=== PATIENT | male | born 1965 | race Caucasian/White ===

== ENCOUNTER 2023-06-26 01:40 | Emergency (ER) | payer OTHER, SELFPAY ==
[2023-06-26] VITALS (11 sets, daily range): BP systolic 156–193; BP diastolic 83–96; PULSE 61–130; RESP 14–36; TEMP 36.6; O2SAT 86–97; BMI 28.0
--- NOTE | 2023-06-26 01:53 | ED_ITS ---
HPI - General Adult <Maryana Spears MD - Last Filed: 06/26/23 18:39> General Chief complaint: Toxicology Problem Stated complaint: SI- intoxicated. Time Seen by Provider: 06/26/23 01:40 History of Present Illness HPI narrative: 58-year-old gentleman brought on by medics after his called 911 concerned that he was suicidal, [place] and acutely intoxicated. He states that he has no acute medical issues, he is simply needed to get away because his ?talks talks talks talks talks talks in my ear all the time. He said that he started drinking around noon today which is 14 hours ago and over that timeframe has had 1.5 1/5 bottles of hard alcohol at around 12 beers. He states that he typically drinks every other day, does not have difficulty when he stops drinking, has thought about cutting back but has never been to any type of rehab or detox program. He states that he has never tried to kill himself and isn't sure why his was worried about him this time when he ?has said at least 100 times to her that I am going to kill myself?. He has no plan. He is intoxicated, perseverating but otherwise calm with no aggressive behaviors and no overt behaviors to suggest acute suicidal ideation Related Data Allergies Allergy/AdvReac Type Severity Reaction Status Date / Time No Known Drug Allergies Allergy Verified 06/26/23 02:10 Review of Systems <Maryana Spears MD - Last Filed: 06/26/23 18:39> Review of Systems Narrative: Pertinent positive and negative findings as per HPI Patient History <Maryana Spears MD - Last Filed: 06/26/23 18:39> Medical History (Updated 06/26/23 @ 05:44 by Maryana Spears MD) Alcohol use disorder Exam <Maryana Spears MD - Last Filed: 06/26/23 18:39> Narrative Exam Narrative: General: Healthy appearing, in no acute distress. Acutely intoxicated with unstable gait, perseverating conversation but no signs of self-harm HEENT: Moist mucous membranes, normal sclera with reactive pupils, Respiratory: Lungs are clear to auscultation, no wheezing no rales no rhonchi. Full and symmetrical air movement Cardiac: Regular rate and rhythm no murmurs no bruits Abdomen: Soft, nontender, good bowel tones, no flank pain Skin: Warm and dry, no rashes Neurologic: Intoxicated but otherwise Grossly neurologically intact with no obvious asymmetries or abnormalities Extremities: No trauma, well perfused Psych: Cooperative, poor overall insight Initial Vital Signs Initial Vital Signs: Vital Signs Temperature 98 F 06/26/23 01:40 Pulse Rate 96 H 06/26/23 01:40 Respiratory Rate 16 06/26/23 01:40 Blood Pressure 190/93 H 06/26/23 01:40 Pulse Oximetry 95 06/26/23 01:40 Oxygen Delivery Method Room Air 06/26/23 01:40 <Renee Liao DO - Last Filed: 06/26/23 14:44> Initial Vital Signs Initial Vital Signs: Vital Signs Temperature 98 F 06/26/23 01:40 Pulse Rate 96 H 06/26/23 01:40 Respiratory Rate 16 06/26/23 01:40 Blood Pressure 190/93 H 06/26/23 01:40 Pulse Oximetry 95 06/26/23 01:40 Oxygen Delivery Method Room Air 06/26/23 01:40 Course <Maryana Spears MD - Last Filed: 06/26/23 18:39> Orders Ordered: Discontinued Medications Thiamine HCl 100 mg/ Sodium (Chloride) 101 mls @ 404 mls/hr IV NOW ONE Stop: 06/26/23 01:54 Last Infusion: 06/26/23 02:26 Dose: Infused Documented By: Admin: 06/26/23 02:11 Dose: 404 mls/hr Documented By: KATHRYN Sodium Chloride (Normal Saline 0.9%) 1,000 mls @ 1,000 mls/hr IV BOLUS ONE Stop: 06/26/23 02:52 Last Infusion: 06/26/23 03:12 Dose: Infused Documented By: Admin: 06/26/23 02:12 Dose: 1,000 mls/hr Documented By: KATHRYN Ketamine HCl (Ketamine 500 Mg/5 Ml Inj) 300 mg IM NOW ONE Stop: 06/26/23 03:14 Last Admin: 06/26/23 03:25 Dose: 300 mg Documented By: KATHRYN Ondansetron HCl (Ondansetron 4 Mg/2 Ml Inj) 4 mg IV NOW ONE Stop: 06/26/23 01:54 Last Admin: 06/26/23 02:11 Dose: 4 mg Documented By: KATHRYN Vital Signs Vital signs: Vital Signs - 8 hr 06/26/23 01:40 06/26/23 01:43 06/26/23 01:44 Temperature 98 F Pulse Rate 96 H 94 H Respiratory Rate 16 Blood Pressure 190/93 H 190/93 H Pulse Oximetry 95 97 Oxygen Delivery Method Room Air Oxygen Flow Rate 06/26/23 02:00 06/26/23 02:00 06/26/23 02:30 Temperature Pulse Rate 88 61 Respiratory Rate Blood Pressure 183/96 H Pulse Oximetry 97 95 Oxygen Delivery Method Oxygen Flow Rate 06/26/23 03:25 06/26/23 03:27 06/26/23 03:27 Temperature Pulse Rate 119 H 124 H Respiratory Rate 16 Blood Pressure 183/84 H Pulse Oximetry 92 93 86 L Oxygen Delivery Method Room Air Oxygen Flow Rate 06/26/23 03:30 06/26/23 03:30 06/26/23 04:00 Temperature Pulse Rate 130 H 114 H Respiratory Rate 14 19 Blood Pressure 182/85 H Pulse Oximetry 94 95 Oxygen Delivery Method Nasal Cannula Oxygen Flow Rate 2 06/26/23 04:00 06/26/23 04:30 06/26/23 04:31 Temperature Pulse Rate 106 H Respiratory Rate 36 H Blood Pressure 193/83 H 156/95 H Pulse Oximetry Oxygen Delivery Method Oxygen Flow Rate 06/26/23 04:31 Temperature Pulse Rate 108 H Respiratory Rate 32 H Blood Pressure Pulse Oximetry 96 Oxygen Delivery Method Room Air Oxygen Flow Rate <Renee Liao, - Last Filed: 06/26/23 14:44> Orders Ordered: Discontinued Medications Thiamine HCl 100 mg/ Sodium (Chloride) 101 mls @ 404 mls/hr IV NOW ONE Stop: 06/26/23 01:54 Last Infusion: 06/26/23 02:26 Dose: Infused Documented By: Admin: 06/26/23 02:11 Dose: 404 mls/hr Documented By: KATHRYN Sodium Chloride (Normal Saline 0.9%) 1,000 mls @ 1,000 mls/hr IV BOLUS ONE Stop: 06/26/23 02:52 Last Infusion: 06/26/23 03:12 Dose: Infused Documented By: Admin: 06/26/23 02:12 Dose: 1,000 mls/hr Documented By: KATHRYN Ketamine HCl (Ketamine 500 Mg/5 Ml Inj) 300 mg IM NOW ONE Stop: 06/26/23 03:14 Last Admin: 06/26/23 03:25 Dose: 300 mg Documented By: KATHRYN Ondansetron HCl (Ondansetron 4 Mg/2 Ml Inj) 4 mg IV NOW ONE Stop: 06/26/23 01:54 Last Admin: 06/26/23 02:11 Dose: 4 mg Documented By: KATHRYN Vital Signs Vital signs: Vital Signs - 8 hr 06/26/23 01:40 06/26/23 01:43 06/26/23 01:44 Temperature 98 F Pulse Rate 96 H 94 H Respiratory Rate 16 Blood Pressure 190/93 H 190/93 H Pulse Oximetry 95 97 Oxygen Delivery Method Room Air Oxygen Flow Rate 06/26/23 02:00 06/26/23 02:00 06/26/23 02:30 Temperature Pulse Rate 88 61 Respiratory Rate Blood Pressure 183/96 H Pulse Oximetry 97 95 Oxygen Delivery Method Oxygen Flow Rate 06/26/23 03:25 06/26/23 03:27 06/26/23 03:27 Temperature Pulse Rate 119 H 124 H Respiratory Rate 16 Blood Pressure 183/84 H Pulse Oximetry 92 93 86 L Oxygen Delivery Method Room Air Oxygen Flow Rate 06/26/23 03:30 06/26/23 03:30 06/26/23 04:00 Temperature Pulse Rate 130 H 114 H Respiratory Rate 14 19 Blood Pressure 182/85 H Pulse Oximetry 94 95 Oxygen Delivery Method Nasal Cannula Oxygen Flow Rate 2 06/26/23 04:00 06/26/23 04:30 06/26/23 04:31 Temperature Pulse Rate 106 H Respiratory Rate 36 H Blood Pressure 193/83 H 156/95 H Pulse Oximetry Oxygen Delivery Method Oxygen Flow Rate 06/26/23 04:31 Temperature Pulse Rate 108 H Respiratory Rate 32 H Blood Pressure Pulse Oximetry 96 Oxygen Delivery Method Room Air Oxygen Flow Rate Medical Decision Making <Maryana Spears MD - Last Filed: 06/26/23 18:39> Lab Data 06/26/23 01:55 06/26/23 01:55 Labs: Lab Results 06/26/23 06/26/23 Range/Units 01:55 02:50 WBC 7.7 (4.5-11.0) X10^3/uL RBC 4.82 (4.5-5.9) X10^6/uL Hgb 15.5 (13.5-17.5) g/dL Hct 45.1 (41-53) % MCV 93.6 (80-100) fL MCH 32.2 (26-34) PG MCHC 34.4 (30-36) % RDW 14.8 (11.6-14.8) % Plt Count 271 (150-400) X10^3/uL Neut % (Auto) 58.4 (50-75) % Lymph % (Auto) 30.1 (25-40) % [place]ud[place]eth % (Auto) 6.8 (3-14) % Eos % (Auto) 2.7 (2-4) % Baso % (Auto) 2.0 (0-2) % Neut # (Auto) 4500 (2419-8162) /uL Lymph # (Auto) 2300 (5512-6252) /uL [place] # (Auto) 500 (0-900) /uL Eos # (Auto) 200 (0-450) /uL Baso # (Auto) 200 H (0-100) /uL Sodium 148 H (137-145) mmol/L Potassium 3.4 (3.4-5.1) mmol/L Chloride 111 H (98-107) mmol/L Carbon Dioxide 27 (22-32) mmol/L BUN 5 L (9-20) mg/dL Creatinine 0.77 (0.66-1.25) mg/dL Estimated GFR > 60 (>60) mL/min BUN/Creatinine Ratio 6.5 (6-22) Glucose 114 H (80-110) mg/dL Calcium 8.8 (8.4-10.2) mg/dL Magnesium 2.2 (1.6-2.3) mg/dL Total Bilirubin 0.7 (0.2-1.3) mg/dL AST 33 (17-59) IU/L ALT 21 (<50) IU/L Alkaline Phosphatase 107 (38-126) U/L Total Protein 7.7 (6.3-8.2) g/dL Albumin 4.0 (3.5-5.0) g/dL Globulin 3.7 (1.7-4.1) g/dL Albumin/Globulin Ratio 1.1 (1.0-2.8) Lipase 94 (23-300) U/L Urine RBC None seen (0-5/HPF) Urine WBC None seen (0-5/HPF) Ur Squamous Epith Cells None seen (0-5/HPF) Urine Bacteria None seen (None) Ur Culture Indicated? Cult not indicated U Opiates 300ng/mL cut Negative (Negative) Ur Oxycodone Screen Negative (Negative) Urine Methadone Screen Negative (Negative) Ur Barbiturates Screen Negative (Negative) U Tricyclic Antidepress Negative (Negative) Ur Phencyclidine Scrn Negative (Negative) Ur Amphetamines Screen Negative (Negative) U Methamphetamines Scrn Negative (Negative) Ur MDMA Scrn (Ecstasy) Negative (Negative) U Benzodiazepines Scrn Negative (Negative) Urine Cocaine Screen Negative (Negative) U Marijuana (THC) Screen Negative (Negative) Ethyl Alcohol 344 H ( - 10) mg/dL MDM Narrative Medical decision making narrative: . CC: Acute alcohol intoxication, suicidal ideation Complicating co-morbidities: Unknown Data collected from: patient, Social determinants of health that may influence the patients condition: No access to records, ID or his to confirm Medical records reviewed: None are available Differential considered: Acute alcohol alcohol intoxication, suicidal ideation, life frustration with depression Exam documented above, pertinent findings include: 58-year-old gentleman with slightly intoxicated no signs of self-harm does not understand how he possibly ended up in the emergency department and continues to have increasing frustration levels with his Lab Test results independently reviewed as above. Pertinent findings: Metabolic panel shows a sodium of 148, her main or chemistries are unremarkable CBC is reassuring Alcohol level is 344 Urine drug screen is otherwise unremarkable Treatments: A L of fluid, 4 mg of Zofran, a 100 mg of vitamin Re-evaluations:3am patient got up and ran out of the emergency department. His gait was actually much more steady. We did attempt to redirect him and invited him to stay. He can continued to try to run out the front door. One of our nurses did follow him to make sure that he was safe. 911 was called to let them know that and intoxicated suicidal gentleman was trying to leave the hospital. Alcohol level was 344 and at the very least he needs to sober enough to safely be able to decide he can go home. It is not entirely clear that he is in fact suicidal, what is clear is that he is acutely intoxicated, frustrated and not able to be medically cleared and not able to safely return to his camp site without a responsible adult with him. Police did respond and did escort him back to room 6. Will sedate him with ketamine until he is able to sober enough to be medically cleared. He pulled his IV out so we will be using IM ketamine at 3.5/kg. He is becoming increasingly agitated, belligerent and more of a danger to both himself and to staff. 325am patient was redirected enough to allow ketamine IM in his arm. We explained to him that he needs to sleep off his alcohol enough to be able to have a sober discussion regarding his mental health. He seemed quite pleased after ketamine was given, finger probe was placed warm blankets were given and hopefully he will be able to sleep for a couple of hours. Patient became quite tearful and continually noted that ?life sucks?. 530am patient is awake and just wants to go home yet not sober enough to formulate a plan to actually get home. Discussion: 58-year-old gentleman with some obvious marital difficulties and alcohol use disorder clearly quite intoxicated last night passive suicidal ideation while he was acutely intoxicated as he is sobered he is somewhat embarrassed, frustrated and clearly not suicidal. He clearly identifies reasons that he wants to live and was not able to describe any type of plan to follow through for suicide. At this time he has no interest in stopping his alcohol use, he is functionally sober, not mentioning any passive suicidal or active suicidal verbiage and will be safe to go home once he is able to call either a cab or an uber to get him back [place] <Renee Liao, DO - Last Filed: 06/26/23 14:44> Lab Data Labs: Lab Results 06/26/23 06/26/23 Range/Units 01:55 02:50 WBC 7.7 (4.5-11.0) X10^3/uL RBC 4.82 (4.5-5.9) X10^6/uL Hgb 15.5 (13.5-17.5) g/dL Hct 45.1 (41-53) % MCV 93.6 (80-100) fL MCH 32.2 (26-34) PG MCHC 34.4 (30-36) % RDW 14.8 (11.6-14.8) % Plt Count 271 (150-400) X10^3/uL Neut % (Auto) 58.4 (50-75) % Lymph % (Auto) 30.1 (25-40) % [place] % (Auto) 6.8 (3-14) % Eos % (Auto) 2.7 (2-4) % Baso % (Auto) 2.0 (0-2) % Neut # (Auto) 4500 (4079-1569) /uL Lymph # (Auto) 2300 (7396-3632) /uL [place] # (Auto) 500 (0-900) /uL Eos # (Auto) 200 (0-450) /uL Baso # (Auto) 200 H (0-100) /uL Sodium 148 H (137-145) mmol/L Potassium 3.4 (3.4-5.1) mmol/L Chloride 111 H (98-107) mmol/L Carbon Dioxide 27 (22-32) mmol/L BUN 5 L (9-20) mg/dL Creatinine 0.77 (0.66-1.25) mg/dL Estimated GFR > 60 (>60) mL/min BUN/Creatinine Ratio 6.5 (6-22) Glucose 114 H (80-110) mg/dL Calcium 8.8 (8.4-10.2) mg/dL Magnesium 2.2 (1.6-2.3) mg/dL Total Bilirubin 0.7 (0.2-1.3) mg/dL AST 33 (17-59) IU/L ALT 21 (<50) IU/L Alkaline Phosphatase 107 (38-126) U/L Total Protein 7.7 (6.3-8.2) g/dL Albumin 4.0 (3.5-5.0) g/dL Globulin 3.7 (1.7-4.1) g/dL Albumin/Globulin Ratio 1.1 (1.0-2.8) Lipase 94 (23-300) U/L Urine RBC None seen (0-5/HPF) Urine WBC None seen (0-5/HPF) Ur Squamous Epith Cells None seen (0-5/HPF) Urine Bacteria None seen (None) Ur Culture Indicated? Cult not indicated U Opiates 300ng/mL cut Negative (Negative) Ur Oxycodone Screen Negative (Negative) Urine Methadone Screen Negative (Negative) Ur Barbiturates Screen Negative (Negative) U Tricyclic Antidepress Negative (Negative) Ur Phencyclidine Scrn Negative (Negative) Ur Amphetamines Screen Negative (Negative) U Methamphetamines Scrn Negative (Negative) Ur MDMA Scrn (Ecstasy) Negative (Negative) U Benzodiazepines Scrn Negative (Negative) Urine Cocaine Screen Negative (Negative) U Marijuana (THC) Screen Negative (Negative) Ethyl Alcohol 344 H ( - 10) mg/dL MDM Narrative Medical decision making narrative: . CC: Acute alcohol intoxication, suicidal ideation Complicating co-morbidities: Unknown Data collected from: patient, Social determinants of health that may influence the patients condition: No access to records, ID or his to confirm Medical records reviewed: None are available Differential considered: Acute alcohol alcohol intoxication, suicidal ideation, life frustration with depression Exam documented above, pertinent findings include: 58-year-old gentleman with slightly intoxicated no signs of self-harm does not understand how he possibly ended up in the emergency department and continues to have increasing frustration levels with his Lab Test results independently reviewed as above. Pertinent findings: Metabolic panel shows a sodium of 148, her main or chemistries are unremarkable CBC is reassuring Alcohol level is 344 Urine drug screen is otherwise unremarkable Treatments: A L of fluid, 4 mg of Zofran, a 100 mg of vitamin Re-evaluations:3am patient got up and ran out of the emergency department. His gait was actually much more steady. We did attempt to redirect him and invited him to stay. He can continued to try to run out the front door. One of our nurses did follow him to make sure that he was safe. 911 was called to let them know that and intoxicated suicidal gentleman was trying to leave the hospital. Alcohol level was 344 and at the very least he needs to sober enough to safely be able to decide he can go home. It is not entirely clear that he is in fact suicidal, what is clear is that he is acutely intoxicated, frustrated and not able to be medically cleared and not able to safely return to his camp site without a responsible adult with him. Police did respond and did escort him back to room 6. Will sedate him with ketamine until he is able to sober enough to be medically cleared. He pulled his IV out so we will be using IM ketamine at 3.5/kg. He is becoming increasingly agitated, belligerent and more of a danger to both himself and to staff. 325am patient was redirected enough to allow ketamine IM in his arm. We explained to him that he needs to sleep off his alcohol enough to be able to have a sober discussion regarding his mental health. He seemed quite pleased after ketamine was given, finger probe was placed warm blankets were given and hopefully he will be able to sleep for a couple of hours. Patient became quite tearful and continually noted that ?life sucks?. 530am patient is awake and just wants to go home yet not sober enough to formulate a plan to actually get home. Discussion: 58-year-old gentleman with some obvious marital difficulties and alcohol use disorder clearly quite intoxicated last night passive suicidal ideation while he was acutely intoxicated as he is sobered he is somewhat embarrassed, frustrated and clearly not suicidal. He clearly identifies reasons that he wants to live and was not able to describe any type of plan to follow through for suicide. At this time he has no interest in stopping his alcohol use, he is functionally sober, not mentioning any passive suicidal or active suicidal verbiage and will be safe to go home once he is able to call either a cab or an uber to get him back to [place] 06/26/23: Patient signed out to myself. Patient presented intoxicated there was concern about suicidal ideation. Patient states he does not feel suicidal this time he does not wish to harm himself or others. He does wish to return to his camp site and sleep. He states he will not drive drunk. He did receive medications after being brought back by PD at about 3:00 a.m. this morning. He is alert, he is ambulating without issues, he is able to converse and contract for safety and felt to be clinically sober enough to be medically cleared at this time. He has not been aggressive but very much does not wish to be here in the department. I feel this time and he is appropriate for discharge with a cab back to his camp site 0830am Discharge Plan Departure Patient Disposition: Home Clinical Impression: Alcohol use disorder, Suicide ideation Alcoholic intoxication Qualifiers: Complication of substance-induced condition: uncomplicated Qualified Code(s): F 10.920 - Alcohol use, unspecified with intoxication, uncomplicated Instructions: DI for Alcohol Use Disorder, DI for Suicidal Ideation-Adult Activity Restrictions/Additional Instructions: I am sorry that you had such a frustrating night You were intoxicated enough and making significant enough threats about wanting to hurt yourself that your contacted 911 in your brought to the emergency room for further evaluation Your alcohol level was elevated at 355 which is significantly intoxicated. Legal level for driving is 80 or lower. The remainder of your workup was unremarkable As you sobered, your suicidal ideation cleared. At no point to do identify a plan. You did not indicate that you wanted any help with your drinking. Once you were sober enough to be safely released to your own recognizance, you are allowed to arrange for a ride back to you are camp site at [facility]. You said you were not interested in staying to discuss alcohol detox or talking with social worker health services regarding your acute situational disturbance and frustrations with your and your marriage. If you find that you are getting worse or develop any new symptoms, please feel free to return to the emergency department for further evaluation. Stand Alone Forms: Patient Portal/API
--- NOTE | 2023-06-26 02:03 | PC.NURSE ---
During triage and MD evaluation patient stated that he did not mean what he told his , that he wanted to kill himself. He also states he does not have a plan. Pt denies having any attempts in past, then continues on stating, But I wish I could find a way to do it painlessly and without hurting anyone. Patient reports he is having problems with his , stating, My won't stop, she just won't stop, and you won't understand. Patient reports he wanted to get away today so he left home and came to [place] and to get away. Police were able to find patient at park after 's 911 call, ultimately leading to EMS arrival and transporting patient here.
[2023-06-26 02:07] LABS: Add Manual Diff / Slide Review NO; Basophils Absolute Auto 200 /uL (0-100); Eosinophils Absolute Auto 200 /uL (0-450); Eosinophils Percent Auto 2.7 % (2-4); Hematocrit 45.1 % (41-53); Hemoglobin 15.5 g/dL (13.5-17.5); Lymphocytes Absolute Auto 2300 /uL (1100-4500); Lymphocytes Percent Auto 30.1 % (25-40); Mean Corpuscular HGB Conc 34.4 % (30-36); Mean Corpuscular Hemoglobin 32.2 PG (26-34); Mean Corpuscular Volume 93.6 fL (80-100); Monocytes Absolute Auto 500 /uL (0-900); Monocytes Percent Auto 6.8 % (3-14); Neutrophils Absolute Auto 4500 /uL (1500-7000); Neutrophils Percent Auto 58.4 % (50-75); Platelet Count 271 X10^3/uL (150-400); Red Blood Cell Count 4.82 X10^6/uL (4.5-5.9); Red Cell Distribution Width 14.8 % (11.6-14.8); White Blood Cell Count 7.7 X10^3/uL (4.5-11.0)
[2023-06-26] MEDS: THIAMINE 100 MG in SODIUM CHLORIDE 0.9% 100 ML 404 MG IV (02:11)
[2023-06-26] MEDS: ONDANSETRON 4 MG/2 ML INJ IV (02:11)
[2023-06-26] MEDS: SODIUM CHLORIDE 0.9% 1,000 ML 1000 ML IV (02:12)
[2023-06-26 02:15] LABS: Alanine Aminotransferase 21 IU/L (<50); Albumin Globulin Ratio 1.1 (1.0-2.8); Alkaline Phosphatase 107 U/L (38-126); Aspartate Aminotransferase 33 IU/L (17-59); BUN Creatinine Ratio 6.5 (6-22); Bilirubin Total 0.7 mg/dL (0.2-1.3); Blood Urea Nitrogen 5 mg/dL (9-20); Calcium 8.8 mg/dL (8.4-10.2); Carbon Dioxide 27 mmol/L (22-32); Chloride 111 mmol/L (98-107); Estimated Glomerular Filt Rate > 60 mL/min (>60); Globulin 3.7 g/dL (1.7-4.1); Glucose 114 mg/dL (80-110); HEMOLYSIS < 15 (0-50); Lipase 94 U/L (23-300); Magnesium 2.2 mg/dL (1.6-2.3); Potassium 3.4 mmol/L (3.4-5.1); Sodium 148 mmol/L (137-145); Total Protein 7.7 g/dL (6.3-8.2)
[2023-06-26 02:22] LABS: Ethanol (ETOH) 344 mg/dL
[2023-06-26 03:11] LABS: UR Morphine/Opiate cutoff 300 Negative (Negative); Ur Creatinine Normal (Normal); Ur Specific Gravity Normal (Normal); Urine Amphetamines Negative (Negative); Urine Barbiturates Negative (Negative); Urine Benzodiazepines Negative (Negative); Urine Cocaine Negative (Negative); Urine MDMA Negative (Negative); Urine Methadone Negative (Negative); Urine Methamphetamines Negative (Negative); Urine Oxycodone Negative (Negative); Urine Phencyclidine Negative (Negative); Urine Tetrahydrocannabinol Negative (Negative); Urine Tricyclic Antidepressant Negative (Negative); Urine pH Normal (Normal)
--- NOTE | 2023-06-26 03:12 | PC.NURSE ---
[employer] INSPECTOR note: Patient began to wander out of the room, walked out of the ED. Santino HERNANDEZ and I followed him. Patient wanted to go home, Santino told patient he couldn't leave because he had an IV. Patient showed forearm and said no I don't. Santino expressed that if patient were to attempt to leave, we would need to call the police. Patient continued to wander. I called the [place] [employer] Patrol number. The officer on the line told me next time to call 911. Officers came to the ED. Found Santino and patient via [employer], they were near the [place]. Police and security found patient and Santino. They brought him back to the room.
[2023-06-26] MEDS: KETAMINE 500 MG/5 ML INJ 300 MG IM (03:25)
[2023-06-26 03:27] LABS: Bacteria Urine None Seen; Culture Indicated Urine Cult Not Indicated; RBC Urine None Seen (0-5/HPF); Squamous Epithelial Cell Urine None Seen (0-5/HPF); WBC Urine None Seen (0-5/HPF)
--- NOTE | 2023-06-26 03:46 | PC.NURSE ---
Concern: attempt to elope w/ Law Enforcement involvement. Pt perseverating w/ repeated questions, asking why am I here, I'm just drunk . Pt subsequently became angry and attempted to depart the ED. Tripp HENDRICKSON contacted and provided assistance in returning patient to room. Provider conversed w/ patient about medications to help him sleep, pt agreeable to plan of care, DAIVD Hall administered 300 mg IM ketamine. Coordinator Lito Goldsmith informed.
--- NOTE | 2023-06-26 07:00 | PC.NURSE ---
Patient removed his IV before 0700 today, exact time uncertain. Bleeding controlled.
--- NOTE | 2023-06-26 07:15 | PC.NURSE ---
@ 0715 Patient refused to stay in the department and walked out the ER doors saying he wanted to find food and coffee. Pt was followed by nightshift RN and hospital security where patient walked out to main admitting waiting area and sat down. This RN went to assist and attempt to encourage patient to come back into the ER where I would get him hot coffee and breakfast. Patient refused to return to the ER because it is like a intermediate. Patient pulled out his phone and said rey ramos, start recording while pointing the phone in staffs direction and asking staff their names. Myself and security stood by patient listening to his concerns about just wanting to go back to his campsite where he can sleep off his drinking. I asked patient if he had thoughts of hurting himself, to which patient responds No!, I just want to go back to my campsite where I can sleep. I asked patient if he had anyone who could pick him up since he cannot be driving and it is too far for him to walk back to his campsite, pt states No, I have noone to pick me up other than my , and she is a Fucking cunt and thats why I went camping, to get time away from her and to think about our relationship. He then began pointing at the pictures on the wall in the hospital with scenic views, stating I just want to go back to enjoy views like this camping. Patient still refusing to come back to the ER and started to walk towards the cafeteria to leave the hospital. entrance guard followed patient, I returned to the ER and notified provider of patients status and refusing to return. Patient walked around the hospital and exited through the main ER entrance talking to plant security guard and standing outside by parking area. Provider walked out to talk with patient, patient continues to deny SI/HI with myself and provider, states he wants to go back to his camper and rest. Patient is [facility], he refuses to be transported back home with his . [facility] [employer] was called and they can take patient at 0835. Patient agreeable to wait inside since it is cold and windy outside. Patient sitting in hospital c hair at main ER entrance. I provided patient with hot coffee and water. Patient expressing his thanks and says thank you for working with me.
--- NOTE | 2023-06-26 07:37 | PC.NURSE ---
Pt is awake alert and uncooperative. OOB and ambulating around room and to bathroom. Will not stay in his room as instructed. Left department out of ED doors. Being followed by security and DAVID Martinez who is attempting to bring him back to ED. Dr Liao is made aware. Ordered pt breakfast meal tray and offered coffee by DAVID Martinez. Attempting to find a family member who can come pick him up. Pt reports that this hospital is a detention and he doesn't want to stay here. He denies SI/HI. states he left him home last night because he did not want to be near his . He is currently parked at [employer] in his camper. Pt agreeing to let us take his car keys and get him a cab back to his camper. Dr Liao outside ED doors speaking to patient to solidify a plan of action.
--- NOTE | 2023-06-26 08:00 | PC.NURSE ---
Patient remains ambulatory and alert and oriented x4, and denies dizziness or lightheaded while walking.
--- NOTE | 2023-06-26 08:15 | PC.NURSE ---
Patient waiting for his taxi ride which he states he has money to pay for. Pt provided with discharge paperwork .
--- NOTE | 2023-06-26 08:35 | PC.NURSE ---
@ [id number] security support analyst confirms that patient was picked up by Pedro spangler at the ER entrance.
== END 2023-06-26 08:15 | disposition home or self-care (01) ==
PROVIDERS: Emergency Medicine; Emergency Provider Emergency Medicine
DX: R45.851 Suicidal ideations (principal); F10.129 Alcohol abuse with intoxication, unspecified; Y90.8 Blood alcohol level of 240 mg/100 ml or more
CPT/HCPCS: 36415; 80053; 80305; 80320; 81015; 83690; 83735; 85025; 96361; 96374; 99285; J2405